=== PATIENT | female | born 1980 | race Caucasian/White ===

== ENCOUNTER 2020-06-11 09:29 | Emergency (ER) | payer OTHER ==
[2020-06-11] MEDS ORDERED: Sodium Chloride 0.9% 1000 ML 1,000 ML IV STA (10:03)
[2020-06-11] MEDS ORDERED: Sodium Chloride 0.9% 1000 ML 1,000 ML ONE (10:15)
[2020-06-11 10:21] LABS: Absolute Neutrophil Ct (ANC) 10.04 (1.4-6.9); BASOPHIL % 0.1 % (0.0-0.4); Basophil (Absolute #) 0.02 (0-0.4); Eosinophil % 1.9 % (0.00-5.0); Eosinophil (Absolute #) 0.27 (0-0.5); Hematocrit 48.1 % (35-47); Hemoglobin 16.3 gm/dl (12.0-16.0); Lymphocyte (Absolute #) 3.42 (1.0-4.6); Lymphocytes % 23.6 % (24.0-44.0); Mean Cell Volume 94.1 fl (78-100); Mean Corpuscular Hemoglobin 31.9 pg (26-32); Mean Corpuscular Hgb Concent. 33.9 g/dl (32-36); Mean Platelet Volume 11.8 fl (7.5-11.0); Monocyte (Absolute #) 0.77 (0.0-1.3); Monocytes % 5.3 % (0.0-12.0); Neutrophil % 69.1 % (36.0-66.0); Platelet Count 274 K/mm3 (150-450); Red Blood Count 5.11 M/mm3 (4.1-5.4); Red Cell Distribution Width 12.7 % (11.5-14.0); White Blood Count 14.5 K/mm3 (4.0-10.5)
--- NOTE | 2020-06-11 10:24 | ERPHSYRPT ---
- History of Present Illness Time Seen by Provider: 06/11/20 09:50 Source: patient Exam Limitations: no limitations Patient Subjective Stated Complaint: Dizziness Triage Nursing Assessment: Patient ambulated back to ED and transferred self to bed. Patient A+O X3. Patient's skin pink, warm and dry. Patient complains of dizziness and being nauseated for the past two days. Patient states she was around someone on and the person just tested positive for Covid 2 days ago. Patient complains of headache 5/10, body aches, dizziness, Nausea, and diarrhea. Physician History: Patient is a 40-year-old female presents to our ED for evaluation of generalized body, dizziness nausea loose stools. Patient concern for possible Covid. Patient was exposed to her [id number] who was diagnosed Covid +2 days ago. P atient symptoms are mild to moderate intensity. No specific worsening or improving factors. No associated rash. No vomiting. No diarrhea. No trauma. No fever. Chest pain or shortness of breath, patient otherwise healthy. She voices no other complaints at this time. Timing/Duration: day(s) Severity: moderate Modifying Factors: Improves With: nothing Associated Symptoms: nausea, No vomiting, No abdominal pain, No shortness of breath, No heartburn, No diaphoresis, No cough, No chills, No chest pain, No fever, No headaches, No loss of appetite, No malaise, No rash, No syncope, No seizure, No weakness Allergies/Adverse Reactions: ergocalciferol (vitamin D2) [From Vitamin D2] Allergy (Verified 06/11/20 09:46) metronidazole [From Flagyl] Allergy (Verified 06/11/20 09:46) Hx Influenza Vaccination/Date Given: No Hx Pneumococcal Vaccination/Date Given: No Immunizations Up to Date: Yes Travel Risk - International Travel Have you traveled outside of the country in past 3 weeks: No - Coronavirus Screening Are you exhibiting any of the following symptoms?: Yes Symptoms: Fever Close contact with a COVID-19 positive Pt in past 14-21 Days: Yes - Review of Systems Constitutional: No Symptoms, No Fever, No Chills Eyes: No Symptoms Ears, Nose, & Throat: No Symptoms Respiratory: No Symptoms, No Cough, No Dyspnea Cardiac: No Symptoms, No Chest Pain, No Edema, No Syncope Abdominal/Gastrointestinal: No Symptoms, No Abdominal Pain, No Nausea, No Vomiting, No Diarrhea Genitourinary Symptoms: No Symptoms, No Dysuria Musculoskeletal: No Symptoms, No Back Pain, No Neck Pain Skin: No Symptoms, No Rash Neurological: No Symptoms, No Dizziness, No Focal Weakness, No Sensory Changes Psychological: No Symptoms Endocrine: No Symptoms Hematologic/Lymphatic: No Symptoms Immunological/Allergic: No Symptoms All Other Systems: Reviewed and Negative - Past Medical History Pertinent Past Medical History: Yes Neurological History: No Pertinent History ENT History: No Pertinent History Cardiac History: No Pertinent History Respiratory History: No Pertinent History Endocrine Medical History: No Pertinent History Musculoskeletal History: Fibromyalgia GI Medical History: Colitis, Pancreatitis History: No Pertinent History Psycho-Social History: No Pertinent History Female Reproductive Disorders: No Pertinent History - Past Surgical History Past Surgical History: Yes Neuro Surgical History: No Pertinent History Cardiac: No Pertinent History Respiratory: No Pertinent History Gastrointestinal: Appendectomy, Cholecystectomy Musculoskeletal: No Pertinent History Female Surgical History: Hysterectomy, Other Other Surgical History: bladder sling - Social History Smoking Status: Current every day smoker How long have you smoked: years Exposure to second hand smoke: Yes Drug Use: none Patient Lives Alone: No - Female History Hx Last Menstrual Period: hysterecomty Hx Now: No - Nursing Vital Signs Nursing Vital Signs: Initial Vital Signs Temperature 98.3 F 06/11/20 09:48 Pulse Rate 78 06/11/20 09:48 Respiratory Rate 18 06/11/20 09:48 Blood Pressure 150/76 06/11/20 09:48 O2 Sat by Pulse Oximetry 98 06/11/20 09:48 Pain Scale Pain Intensity 5 - Physical Exam General Appearance: no apparent distress, alert Eye Exam: PERRL/EOMI, eyes nml inspection Ears, Nose, Throat Exam: normal ENT inspection, TMs normal, pharynx normal, moist mucous membranes Neck Exam: normal inspection, non-tender, supple, full range of motion Respiratory Exam: normal breath sounds, lungs clear, No respiratory distress Cardiovascular Exam: regular rate/rhythm, normal heart sounds, normal peripheral pulses Gastrointestinal/Abdomen Exam: soft, normal bowel sounds, No tenderness, No mass Back Exam: normal inspection, normal range of motion, No CVA tenderness, No vertebral tenderness Extremity Exam: normal inspection, normal range of motion, pelvis stable Neurologic Exam: alert, oriented x 3, cooperative, normal mood/affect, nml cerebellar function, nml station & gait, sensation nml, No motor deficits Skin Exam: normal color, warm, dry, No rash Lymphatic Exam: No adenopathy SpO2 Interpretation: normal SpO2: 96 O2 Delivery: Room Air - Course Nursing assessment & vital signs reviewed: Yes Ordered Tests: Active Orders 24 hr Category Date Time Status Mobile Equipment Operator STAT Care 06/11/20 10:05 Active EKG-ER Only STAT Care 06/11/20 10:03 Active IV Insertion STAT Care 06/11/20 10:03 Active Pulse Oximetry (ED) STAT Care 06/11/20 10:03 Active CBC W DIFF Stat Lab 06/11/20 10:03 Completed CMP Stat Lab 06/11/20 10:03 Completed HCG,QUALITATIVE URINE Stat Lab 06/11/20 10:07 Completed INFLUENZA A+B FUENTES Stat Lab 06/11/20 10:30 Completed MAGNESIUM Stat Lab 06/11/20 10:03 Completed UA W/RFX UR CULTURE Stat Lab 06/11/20 10:07 Completed Medication Summary Discontinued Medications Generic Name Dose Route Start Last Admin Trade Name Emanuel PRN Reason Stop Dose Admin Sodium Chloride 1,000 mls @ 999 mls/hr 06/11/20 10:03 06/11/20 11:18 Sodium Chloride 0.9% 1000 Ml IV 06/11/20 11:03 Infused .Q1H1M STA Infusion Sodium Chloride Confirm 06/11/20 10:15 Sodium Chloride 0.9% 1000 Ml Administered 06/11/20 10:16 Dose 1,000 mls @ ud .ROUTE .STK-MED ONE Lab/Rad Data: Laboratory Result Diagrams 06/11/20 10:03 06/11/20 10:03 Laboratory Results 06/11/20 06/11/20 06/11/20 Range/Units 10:30 10:07 10:07 WBC (4.0-10.5) K/mm3 RBC (4.1-5.4) M/mm3 Hgb (12.0-16.0) gm/dl Hct (35-47) % MCV (78-100) fl MCH (26-32) pg MCHC (32-36) g/dl RDW (11.5-14.0) % Plt Count (150-450) K/mm3 MPV (7.5-11.0) fl Gran % (36.0-66.0) % Eos # (Auto) (0-0.5) Absolute Lymphs (auto) (1.0-4.6) Absolute Monos (auto) (0.0-1.3) Lymphocytes % (24.0-44.0) % Monocytes % (0.0-12.0) % Eosinophils % (0.00-5.0) % Basophils % (0.0-0.4) % Absolute Granulocytes (1.4-6.9) Basophils # (0-0.4) Sodium (137-145) mmol/L Potassium (3.5-5.1) mmol/L Chloride (98-107) mmol/L Carbon Dioxide (22-30) mmol/L Anion Gap (5-15) MEQ/L BUN (7-17) mg/dL Creatinine (0.52-1.04) mg/dL Estimated GFR ML/MIN Glucose (74-106) mg/dL Calcium (8.4-10.2) mg/dL Magnesium (1.6-2.3) mg/dL Total Bilirubin (0.2-1.3) mg/dL AST (14-36) U/L ALT (0-35) U/L Alkaline Phosphatase (38-126) U/L Serum Total Protein (6.3-8.2) g/dL Albumin (3.5-5.0) g/dL Urine Color YELLOW (YELLOW) Urine Appearance SLIGHTLY CLOUDY (CLEAR) Urine pH 5.0 (5-6) Ur Specific [place] 1.021 (1.005-1.025) Urine Protein NEGATIVE (Negative) Urine Ketones TRACE (NEGATIVE) Urine Blood NEGATIVE (0-5) Simon/ul Urine Nitrite NEGATIVE (NEGATIVE) Urine Bilirubin NEGATIVE (NEGATIVE) Urine Urobilinogen NEGATIVE (0-1) mg/dL Ur Leukocyte Esterase NEGATIVE (NEGATIVE) Urine WBC (Auto) 3-5 (0-5) /HPF Urine RBC (Auto) 3-5 (0-2) /HPF U Epithel Cells (Auto) RARE (FEW) /HPF Urine Bacteria (Auto) NONE (NEGATIVE) /HPF Urine Mucus (Auto) SLIGHT (NEGATIVE) /HPF Urine Culture Reflexed NO (NO) Urine Glucose NEGATIVE (NEGATIVE) mg/dL Urine HCG, Qual NEGATIVE (Negative) Influenza Type A Ag NEGATIVE (NEGATIVE) Influenza Type B Ag NEGATIVE (NEGATIVE) 06/11/20 06/11/20 Range/Units 10:03 10:03 WBC 14.5 H (4.0-10.5) K/mm3 RBC 5.11 (4.1-5.4) M/mm3 Hgb 16.3 H (12.0-16.0) gm/dl Hct 48.1 H (35-47) % MCV 94.1 (78-100) fl MCH 31.9 (26-32) pg MCHC 33.9 (32-36) g/dl RDW 12.7 (11.5-14.0) % Plt Count 274 (150-450) K/mm3 MPV 11.8 H (7.5-11.0) fl Gran % 69.1 H (36.0-66.0) % Eos # (Auto) 0.27 (0-0.5) Absolute Lymphs (auto) 3.42 (1.0-4.6) Absolute Monos (auto) 0.77 (0.0-1.3) Lymphocytes % 23.6 L (24.0-44.0) % Monocytes % 5.3 (0.0-12.0) % Eosinophils % 1.9 (0.00-5.0) % Basophils % 0.1 (0.0-0.4) % Absolute Granulocytes 10.04 H (1.4-6.9) Basophils # 0.02 (0-0.4) Sodium 139 (137-145) mmol/L Potassium 4.0 (3.5-5.1) mmol/L Chloride 109 H (98-107) mmol/L Carbon Dioxide 22 (22-30) mmol/L Anion Gap 12.1 (5-15) MEQ/L BUN 11 (7-17) mg/dL Creatinine 0.68 (0.52-1.04) mg/dL Estimated GFR > 60.0 ML/MIN Glucose 95 (74-106) mg/dL Calcium 9.6 (8.4-10.2) mg/dL Magnesium 2.3 (1.6-2.3) mg/dL Total Bilirubin 0.40 (0.2-1.3) mg/dL AST 20 (14-36) U/L ALT 12 (0-35) U/L Alkaline Phosphatase 51 (38-126) U/L Serum Total Protein 8.9 H (6.3-8.2) g/dL Albumin 4.6 (3.5-5.0) g/dL Urine Color (YELLOW) Urine Appearance (CLEAR) Urine pH (5-6) Ur Specific [place] (1.005-1.025) Urine Protein (Negative) Urine Ketones (NEGATIVE) Urine Blood (0-5) Simon/ul Urine Nitrite (NEGATIVE) Urine Bilirubin (NEGATIVE) Urine Urobilinogen (0-1) mg/dL Ur Leukocyte Esterase (NEGATIVE) Urine WBC (Auto) (0-5) /HPF Urine RBC (Auto) (0-2) /HPF U Epithel Cells (Auto) (FEW) /HPF Urine Bacteria (Auto) (NEGATIVE) /HPF Urine Mucus (Auto) (NEGATIVE) /HPF Urine Culture Reflexed (NO) Urine Glucose (NEGATIVE) mg/dL Urine HCG, Qual (Negative) Influenza Type A Ag (NEGATIVE) Influenza Type B Ag (NEGATIVE) - Progress Progress: improved Progress Note: 06/11/20 10:27 Patient reassessed. She feels well. Normal sinus rhythm on hall monitor. Normal vitals. Swab pending. Influenza negative. IV fluids infused. Mild polycythemia. Patient is a smoker which may likely explain this finding. Will discharge home. Patient given instructions on self quarantine. Patient states she is ready for discharge. She voices no other complaints concerns at this time. 06/11/20 10:31 06/11/20 11:05 Counseled pt/family regarding: lab results, diagnosis, need for follow-up, smoking cessation - Departure Departure Disposition: Home Clinical Impression: Viral illness, Exposure to COVID-19 virus Condition: Stable Critical Care Time: No Referrals: RHODA TIDWELL [Primary Care Provider] - Additional Instructions: Discharge/Care Plan GUNNAR CLARK was seen on 06/11/20 in the Emergency Room. The patient was counseled regarding Diagnosis,Lab results, Imaging studies, need for follow up and when to return to the Emergency Room. Prescriptions given: Discharge Note I have spoken with the patient and/or caregivers. I have explained the patient's condition, diagnosis and treatment plan based on the information available to me at this time. I have answered the patient's and/or caregiver's questions and addressed any concerns. The patient and/or caregivers have as good understanding of the patient's diagnosis, condition and treatment plan as can be expected at this point. The vital signs have been stable. The patient's condition is stable and appropriate for discharge from the emergency department. The patient will pursue further outpatient evaluation with the primary care physician or other designated or consulting physician as outlined in the discharge instructions. The patient and/or caregivers are agreeable to this plan of care and follow-up instructions have been explained in detail. The patient and/or caregivers have received these instruction. The patient/and or caregivers are aware that any significant change in condition or worsening of symptoms should prompt an immediate return to this or the closest emergency department or call 911.
[2020-06-11 10:32] LABS: ALBUMIN 4.6 g/dL (3.5-5.0); ALKALINE PHOSPHATASE 51 U/L (38-126); ANION GAP 12.1 MEQ/L (5-15); BLOOD UREA NITROGEN 11 mg/dL (7-17); CHLORIDE 109 mmol/L (98-107); Calcium 9.6 mg/dL (8.4-10.2); Carbon Dioxide 22 mmol/L (22-30); Creatinine 1 0.68 mg/dL (0.52-1.04); EST GLOMERULAR FILTRATION RATE > 60.0 ML/MIN; Glucose 95 mg/dL (74-106); MAGNESIUM 2.3 mg/dL (1.6-2.3); SGOT/AST 20 U/L (14-36); SGPT/ALT 12 U/L (0-35); SODIUM 139 mmol/L (137-145); Total Protein 8.9 g/dL (6.3-8.2)
[2020-06-11 10:40] LABS: Appearance SLIGHTLY CLOUDY (CLEAR); Bilirubin NEGATIVE (NEGATIVE); Blood NEGATIVE Ery/ul (0-5); Epithelial Cells RARE /HPF (FEW); Glucose NEGATIVE (NEGATIVE); Ketones TRACE (NEGATIVE); Leukocyte Esterase NEGATIVE (NEGATIVE); Mucus SLIGHT /HPF (NEGATIVE); Nitrite NEGATIVE (NEGATIVE); Protein,Urine Dip NEGATIVE (Negative); Specific Gravity 1.021 (1.005-1.025); Urobilinogen NEGATIVE mg/dL (0-1)
[2020-06-11 11:08] LABS: INFLUENZA A NEGATIVE (NEGATIVE); INFLUENZA B NEGATIVE (NEGATIVE)
[2020-06-11 11:37] VITALS: BP 118/78; PULSE 56; O2SAT 97
== END 2020-06-11 11:39 | disposition home or self-care (01) ==
LOC: ED 09:29
DX: B34.9 Viral infection, unspecified (principal); Z20.818 Contact with and (suspected) exposure to other bacterial communicable diseases
CPT/HCPCS: 36000; 36415; 80053; 81001; 83735; 84703; 85025; 87400; 93041; 94760; 96360; 96361; 99284; U0003

== ENCOUNTER 2022-09-29 21:38 | Emergency (ER) | payer OTHER ==
[2022-09-29 21:46] VITALS: BP 134/79; PULSE 78; O2SAT 100
--- NOTE | 2022-09-29 22:13 | ERPHSYRPT ---
- History of Present Illness Time Seen by Provider: 09/29/22 22:10 Source: patient Exam Limitations: no limitations Patient Subjective Stated Complaint: Rt elbow/upper arm and shoulder pain Triage Nursing Assessment: pt ambulated into ER without diff. Pt c/o rt elbow, rt upper arm and rt shoulder pain. Pt states, "the pain began in my rt elbow in July and has just gotten worse, and has moved up to my upper arm and shoulder". Pt describes the pain now as a numbess and tingling feeling. Pt denies any injury to the arm. Pt can move the arm up and down but has pain when moving the arm out to the side. Physician History: Patient is a 42-year-old female presents emergency department for evaluation of chronic right upper extremity pain. Patient has been experiencing dull ache throughout her right upper extremity over the past 2 months. Patient states that she has a dependent child/special needs that weighs 59 pounds. Patient states she is right-hand dominant and she carries and transfers her child utili ng symptomatic arm. Patient feels this is exacerbating her symptoms. Patient describes an ache sensation throughout her right volar forearm biceps deltoid and trapezius musculature. Palpation to these areas reproduce her numbness. Active motion reproduces her symptoms. Pain improves/resolves with rest. No blunt trauma. No fever. Patient occasionally feels a numbness sensation to her arm. No active numbness sensation at this time. Patient's involved extremity is neurovascular tact distally. Patient otherwise feels well. She no other associated symptoms. Patient voices no other complaints or concerns at this time. Portions of this note were created with voice recognition technology. There may be grammatical, spelling, punctuation or sound alike errors Timing/Duration: other (2 months) Severity: moderate (3 months) Modifying Factors: Improves With: movement Associated Symptoms: denies symptoms Allergies/Adverse Reactions: ergocalciferol (vitamin D2) [From Vitamin D2] Allergy (Verified 09/29/22 21:52) metronidazole [From Flagyl] Allergy (Verified 09/29/22 21:52) Home Medications: Estradiol [Estrace] 0.5 mg PO DAILY 09/29/22 [History] Hx Tetanus, Diphtheria Vaccination/Date Given: No Hx Influenza Vaccination/Date Given: No Hx Pneumococcal Vaccination/Date Given: No Travel Risk - International Travel Have you traveled outside of the country in past 3 weeks: No - Coronavirus Screening Are you exhibiting any of the following symptoms?: No Close contact with a COVID-19 positive Pt in past 14-21 Days: No - Vaccine Status Have you recieved a Covid-19 vaccination: No - Review of Systems Constitutional: No Symptoms, No Fever, No Chills Eyes: No Symptoms Ears, Nose, & Throat: No Symptoms Respiratory: No Symptoms, No Cough, No Dyspnea Cardiac: No Symptoms, No Chest Pain, No Edema, No Syncope Abdominal/Gastrointestinal: No Symptoms, No Abdominal Pain, No Nausea, No Vomiting, No Diarrhea Genitourinary Symptoms: No Symptoms, No Dysuria Musculoskeletal: No Symptoms, No Back Pain, No Neck Pain Skin: No Symptoms, No Rash Neurological: No Symptoms, No Dizziness, No Focal Weakness, No Sensory Changes Psychological: No Symptoms Endocrine: No Symptoms Hematologic/Lymphatic: No Symptoms Immunological/Allergic: No Symptoms All Other Systems: Reviewed and Negative - Past Medical History Pertinent Past Medical History: Yes Neurological History: Migraines ENT History: No Pertinent History Cardiac History: No Pertinent History Respiratory History: No Pertinent History Endocrine Medical History: No Pertinent History Musculoskeletal History: No Pertinent History GI Medical History: Colitis, Pancreatitis, Other History: No Pertinent History Psycho-Social History: Depression Female Reproductive Disorders: No Pertinent History Other Medical History: PMHX: PANCREATITIS DX'D LAST YEAR. NOT VACCINATED AGAINST COVID. gastroporesis - Past Surgical History Past Surgical History: Yes Neuro Surgical History: No Pertinent History Cardiac: No Pertinent History Respiratory: No Pertinent History Gastrointestinal: Appendectomy, Cholecystectomy Musculoskeletal: No Pertinent History Female Surgical History: Hysterectomy, Other Other Surgical History: bladder sling. ovary removed - Social History Smoking Status: Former smoker How long have you smoked: years Exposure to second hand smoke: No Drug Use: none Patient Lives Alone: No - Female History Hx Now: No - Nursing Vital Signs Nursing Vital Signs: Initial Vital Signs Temperature 97.5 F 09/29/22 21:44 Pulse Rate 78 09/29/22 21:44 Respiratory Rate 16 09/29/22 21:44 Blood Pressure 134/79 09/29/22 21:44 O2 Sat by Pulse Oximetry 100 09/29/22 21:44 Pain Scale Pain Intensity 9 - Physical Exam General Appearance: no apparent distress, alert Eye Exam: PERRL/EOMI, eyes nml inspection Ears, Nose, Throat Exam: normal ENT inspection, TMs normal, pharynx normal, moist mucous membranes Neck Exam: normal inspection, non-tender, supple, full range of motion Respiratory Exam: normal breath sounds, lungs clear, airway intact, No res piratory distress Cardiovascular Exam: regular rate/rhythm, normal heart sounds, normal peripheral pulses Gastrointestinal/Abdomen Exam: soft, normal bowel sounds, No tenderness, No mass Back Exam: normal inspection, normal range of motion, No CVA tenderness, No vertebral tenderness Extremity Exam: normal inspection, normal range of motion, pelvis stable, other (Tenderness to palpation at the volar aspect right forearm biceps deltoid and right upper trapezius muscles. Active resisted motion reproduce symptoms.) Neurologic Exam: alert, oriented x 3, cooperative, normal mood/affect, nml cerebellar function, nml station & gait, sensation nml, No motor deficits Skin Exam: normal color, warm, dry, No rash Lymphatic Exam: No adenopathy SpO2 Interpretation: normal SpO2: 100 O2 Delivery: Room Air - Course Nursing assessment & vital signs reviewed: Yes - Progress Progress: improved Progress Note: 09/29/22 22:15 Patient is a 42-year-old female presents to our emergency department for evaluation of right upper extremity pain. History and physical exam highly suggestive of repetitive motion injury. Patient has a dependent special needs child that she carries and supports utilizing her pneumatic extremity. Palpation and physical active motion reproduce symptoms. Patient offered a sling however she states she has a sling at home. We advised patient to follow- up with her computer graphic artist to assess the need for home health to assist her with care of her child. Complexity of problem addressed is straightforward. Complexity of data reviewed and analyzed was none. Diagnosis is based on history and physical examination. Review of complications and or risk of morbidity/mortality of patient management is minimal. Patient requires rest and application of a sling. Patient will seek to obtain home health to assist her with care of her special needs child We will discharge patient home. Patient will follow-up with her primary care doctor to arrange for home health. Patient voices no other complaints or concerns at this time. No indication for further work-up. Portions of this note were created with voice recognition technology. There may be grammatical, spelling, punctuation or sound alike errors Counseled pt/family regarding: diagnosis, need for follow-up - Departure Departure Disposition: Home Clinical Impression: Repetitive motion disorder, Muscle strain Condition: Stable Critical Care Time: No Referrals: RHODA TIDWELL [Primary Care Provider] - Follow up/PCP as directed Instructions: Overuse Injuries (DC) Additional Instructions: Discharge/Care Plan GUNNAR CLARK was seen on 09/29/22 in the Emergency Room. The patient was counseled regarding Diagnosis,Lab results, Imaging studies, need for follow up and when to return to the Emergency Room. Prescriptions given: Discharge Note I have spoken with the patient and/or caregivers. I have explained the patient's condition, diagnosis and treatment plan based on the information available to me at this time. I have answered the patient's and/or caregiver's questions and addressed any concerns. The patient and/or caregivers have as good understanding of the patient's diagnosis, condition and treatment plan as can be expected at this point. The vital signs have been stable. The patient's condition is stable and appropriate for discharge from the emergency department. The patient will pursue further outpatient evaluation with the primary care physician or other designated or consulting physician as outlined in the discharge instructions. The patient and/or caregivers are agreeable to this plan of care and follow-up instructions have been explained in detail. The patient and/or caregivers have received these instruction. The patient/and or caregivers are aware that any significant change in condition or worsening of symptoms should prompt an immediate return to this or the closest emergency department or call 911.
== END 2022-09-29 22:20 | disposition home or self-care (01) ==
LOC: ED 21:38
DX: S46.911A Strain of unspecified muscle, fascia and tendon at shoulder and upper arm level, right arm, initial encounter (principal); X50.3XXA Overexertion from repetitive movements, initial encounter; X50.0XXA Overexertion from strenuous movement or load, initial encounter; Y93.F2 Activity, caregiving, lifting; M79.601 Pain in right arm; Z28.310 Unvaccinated for COVID-19
CPT/HCPCS: 99281

== ENCOUNTER 2022-12-03 22:24 | Emergency (ER) | payer OTHER ==
[2022-12-03 22:41] VITALS: O2SAT 98
[2022-12-03] MEDS ORDERED: TORAdol 30 mg Injection IM ONE (23:02)
[2022-12-03] MEDS ORDERED: Norflex 60 MG/2 ML IM ONE (23:02)
[2022-12-03] MEDS ORDERED: TORAdol 30 mg Injection ONE (23:05)
[2022-12-03] MEDS ORDERED: Norflex 60 MG/2 ML ONE (23:06)
--- NOTE | 2022-12-03 23:26 | ERPHSYRPT ---
- History of Present Illness Time Seen by Provider: 12/03/22 22:30 Source: patient Exam Limitations: no limitations Patient Subjective Stated Complaint: pt states "around 6 this morning my left calf was hurting like cramping and pain and I was unable to put weight on it. no change at all today despite walking, stretching, and a warm bath" Triage Nursing Assessment: pt ambulated into room 9 independently with slow steady gait and slight limp, walking on toes of left foot. pt is alert and oriented times three, able to move all extremities, resp even and unlabored, and able to speak in complete sentences. Physician History: 42 years old female presented to the ER with chief complaint of left calf pain since morning, sudden onset, dull aching to sharp ramping, more with ambulation and some what better with resting without swelling redness of calf. Denies any fall or trauma. No fever or chills reported. No history of DVT or PEs. Eyes any long travel. Timing/Duration: today, sudden Severity: moderate Modifying Factors: Worsens With: movement Associated Symptoms: denies symptoms Allergies/Adverse Reactions: ergocalciferol (vitamin D2) [From Vitamin D2] Allergy (Verified 09/29/22 21:52) metronidazole [From Flagyl] Allergy (Verified 09/29/22 21:52) Home Medications: Estradiol [Estrace] 0.5 mg PO DAILY 09/29/22 [History] Venlafaxine HCl [Venlafaxine HCl ER] 75 mg PO DAILY 09/29/22 [History] Hx Tetanus, Diphtheria Vaccination/Date Given: No Hx Influenza Vaccination/Date Given: No Hx Pneumococcal Vaccination/Date Given: No Immunizations Up to Date: No Travel Risk - International Travel Have you traveled outside of the country in past 3 weeks: No - Coronavirus Screening Are you exhibiting any of the following symptoms?: No Close contact with a COVID-19 positive Pt in past 14-21 Days: No - Vaccine Status Have you recieved a Covid-19 vaccination: No - Review of Systems Constitutional: No Symptoms Ears, Nose, & Throat: No Symptoms Respiratory: No Symptoms Cardiac: No Symptoms Abdominal/Gastrointestinal: No Symptoms Genitourinary Symptoms: No Symptoms Musculoskeletal: Other (Left calf pain) Skin: No Symptoms Neurological: No Symptoms Endocrine: No Symptoms Hematologic/Lymphatic: No Symptoms - Past Medical History Pertinent Past Medical History: Yes Neurological History: Migraines ENT History: No Pertinent History Cardiac History: No Pertinent History Respiratory History: No Pertinent History Endocrine Medical History: No Pertinent History Musculoskeletal History: No Pertinent History, Fibromyalgia GI Medical History: Colitis, Pancreatitis, Other History: No Pertinent History Psycho-Social History: Depression Female Reproductive Disorders: No Pertinent History Other Medical History: PMHX: PANCREATITIS DX'D LAST YEAR. NOT VACCINATED AGAINST COVID. gastroporesis - Past Surgical History Past Surgical History: Yes Neuro Surgical History: No Pertinent History Cardiac: No Pertinent History Respiratory: No Pertinent History Gastrointestinal: Appendectomy, Cholecystectomy Genitourinary: No Pertinent History Musculoskeletal: No Pertinent History Female Surgical History: Hysterectomy, Other Other Surgical History: bladder sling. ovary removed - Social History Smoking Status: Former smoker How long have you smoked: years Exposure to second hand smoke: No Drug Use: none Patient Lives Alone: No - Female History Hx Last Menstrual Period: 2018 Hx Now: No - Nursing Vital Signs Nursing Vital Signs: Initial Vital Signs Blood Pressure 122/79 12/03/22 22:31 O2 Sat by Pulse Oximetry 98 12/03/22 22:31 Pain Scale Pain Intensity 4 - Physical Exam General Appearance: no apparent distress, alert Eye Exam: PERRL/EOMI Ears, Nose, Throat Exam: normal ENT inspection, pharynx normal Neck Exam: normal inspection, supple, full range of motion Respiratory Exam: normal breath sounds, lungs clear Cardiovascular Exam: regular rate/rhythm, normal heart sounds Extremity Exam: normal inspection, normal range of motion, pelvis stable, tenderness (Tenderness left calf. No swelling or redness. No e rythema/increased temperature. No bony tenderness.) Neurologic Exam: alert, oriented x 3, cooperative Skin Exam: normal color SpO2 Interpretation: normal SpO2: 98 O2 Delivery: Room Air Ordered Tests: Active Orders 24 hr Category Date Time Status VENOUS UNILAT/LIMITED EXTREMIT [US] Stat Exams 12/04/22 23:40 Taken CMP Stat Lab 12/03/22 23:16 Completed MAG [MAGNESIUM] Stat Lab 12/03/22 23:16 Completed Medication Summary Discontinued Medications Generic Name Dose Route Start Last Admin Trade Name Freq PRN Reason Stop Dose Admin Ketorolac Tromethamine 30 mg 12/03/22 23:02 12/03/22 23:07 Ketorolac Tromethamine 30 Mg/Ml Inj IM 12/03/22 23:03 30 mg STAT ONE Administration Ketorolac Tromethamine Confirm 12/03/22 23:05 Ketorolac Tromethamine 30 Mg/Ml Inj Administered 12/03/22 23:06 Dose 30 mg .ROUTE .STK-MED ONE Orphenadrine Citrate 60 mg 12/03/22 23:02 12/03/22 23:07 Orphenadrine Citrate 60 Mg/2 Ml Vial IM 12/03/22 23:03 60 mg STAT ONE Administration Orphenadrine Citrate Confirm 12/03/22 23:06 Orphenadrine Citrate 60 Mg/2 Ml Vial Administered 12/03/22 23:07 Dose 60 mg .ROUTE .STK-MED ONE Lab/Rad Data: Laboratory Result Diagrams 12/03/22 23:16 Laboratory Results 12/03/22 Range/Units 23:16 Sodium 139 (137-145) mmol/L Potassium 3.7 (3.5-5.1) mmol/L Chloride 106 (98-107) mmol/L Carbon Dioxide 24 (22-30) mmol/L Anion Gap 13.6 (5-15) MEQ/L BUN 15 (7-17) mg/dL Creatinine 0.56 (0.52-1.04) mg/dL Estimated GFR > 60.0 ML/MIN Glucose 105 (74-106) mg/dL Calcium 9.0 (8.4-10.2) mg/dL Magnesium 1.8 (1.6-2.3) mg/dL Total Bilirubin 0.30 (0.2-1.3) mg/dL AST 49 H (14-36) U/L ALT 73 H (0-35) U/L Alkaline Phosphatase 44 (38-126) U/L Serum Total Protein 7.3 (6.3-8.2) g/dL Albumin 3.8 (3.5-5.0) g/dL - Progress Progress: improved, pain not gone completely, re-examined Progress Note: 12/04/22 00:26 42 years old is evaluated for left cough pain without any swelling redness, or trauma. Patient is given symptomatic treatment with Toradol, Norflex, reevaluation feeling better but pain is not resolved. Patient has unremarkable electrolytes. No bony tenderness at all. No signs of toxicity. Patient does take estradiol making her more vulnerable for DVT and have obtained ultrasound which is negative per preliminary report, official report is pending. It seems more of a muscular pain, recommended Tylenol ibuprofen and outpatient follow-up. Discussed signs symptoms of worsening needing return to ER which she seems to stable for discharge. Counseled pt/family regarding: lab results, diagnosis, need for follow-up, rad results - Departure Departure Disposition: Home Clinical Impression: Pain of left calf Condition: Stable Critical Care Time: No Referrals: RHODA TIDWELL [Primary Care Provider] - Follow up/PCP as directed (1-2 days for reevaluation) Instructions: Muscle Spasms (DC) Additional Instructions: Take Tylenol/needed. Follow-up care for reeval ration. Return worsening pain or if having swelling redness/fever chills/difficulty ambulation etc. Prescriptions: Ibuprofen 600 mg PO Q6HPRN PRN 10 Days #20 tablet PRN Reason: Pain
[2022-12-03 23:32] LABS: ALBUMIN 3.8 g/dL (3.5-5.0); ALKALINE PHOSPHATASE 44 U/L (38-126); ANION GAP 13.6 MEQ/L (5-15); BLOOD UREA NITROGEN 15 mg/dL (7-17); CHLORIDE 106 mmol/L (98-107); Carbon Dioxide 24 mmol/L (22-30); Creatinine 1 0.56 mg/dL (0.52-1.04); EST GLOMERULAR FILTRATION RATE > 60.0 ML/MIN; Glucose 105 mg/dL (74-106); MAGNESIUM 1.8 mg/dL (1.6-2.3); Potassium 3.7 mmol/L (3.5-5.1); SGOT/AST 49 U/L (14-36); SGPT/ALT 73 U/L (0-35); SODIUM 139 mmol/L (137-145); Total Protein 7.3 g/dL (6.3-8.2)
[2022-12-04 00:41] VITALS: BP 126/76; PULSE 73
--- NOTE | 2022-12-04 08:36 | XRAY ---
Indication: Calf pain. Two-dimensional sonogram and color Doppler imaging of the major venous vessels of the left leg performed. Comparison: None No thrombus seen in the examined deep venous vessels of the left leg including greater saphenous vein. Veins demonstrate normal compressibility. Venous waveforms are normal with and without augmentation. Impression: Left leg negative for DVT. Comment: Preliminary report was given.
== END 2022-12-04 00:42 | disposition home or self-care (01) ==
LOC: ED 22:24
DX: M79.662 Pain in left lower leg (principal); Z20.828 Contact with and (suspected) exposure to other viral communicable diseases; Z79.899 Other long term (current) drug therapy
CPT/HCPCS: 36415; 80053; 83735; 93971; 96372; 99283; J1885; J2360

== ENCOUNTER 2024-09-18 17:47 | Emergency (ER) | payer SELFPAY ==
[2024-09-18 18:06] VITALS: TEMP 98.1
--- NOTE | 2024-09-18 18:54 | ERPHSYRPT ---
- History of Present Illness Time Seen by Provider: 09/18/24 18:45 Source: patient Exam Limitations: clinical condition Patient Subjective Stated Complaint: Left sided flank pain/abdominal pain Triage Nursing Assessment: Patient ambulated back to ED and transferred self to bed. Patient A+O X 3. Patient's skin pink, warm and dry. Patient complains of left sided flank/ abdominal pain 8/10 for the past 4 days with nausea. Patient denies vomiting or diarrhea. Abdomen soft and round with BS X 4. Patient states she does have a hx of pancreatitis. Timing/Duration: today Severity: mild Allergies/Adverse Reactions: ergocalciferol (vitamin D2) [From Vitamin D2] Allergy (Verified 09/18/24 17:55) metronidazole [From Flagyl] Allergy (Verified 09/18/24 17:55) Home Medications: No Reportable Medications [No Reported Medications] 09/18/24 [History] Hx Tetanus, Diphtheria Vaccination/Date Given: No Hx Influenza Vaccination/Date Given: No Hx Pneumococcal Vaccination/Date Given: No Immunizations Up to Date: Yes Travel Risk - International Travel Have you traveled outside of the country in past 3 weeks: No - Emerging Infectious Disease Are you exhibiting symptoms associated with any current EIDs: No - Review of Systems Constitutional: No Symptoms Eyes: No Symptoms Ears, Nose, & Throat: No Symptoms Respiratory: No Symptoms Cardiac: No Symptoms Abdominal/Gastrointestinal: Abdominal Pain Musculoskeletal: No Symptoms Skin: No Symptoms Neurological: No Symptoms Psychological: No Symptoms, Hallucinations Hematologic/Lymphatic: No Symptoms All Other Systems: Reviewed and Negative - Past Medical History Pertinent Past Medical History: Yes Neurological History: Migraines ENT History: No Pertinent History Cardiac History: No Pertinent History Respiratory History: No Pertinent History Endocrine Medical History: No Pertinent History Musculoskeletal History: No Pertinent History, Fibromyalgia GI Medical History: Colitis, Pancreatitis, Other History: No Pertinent History Psycho-Social History: Depression Female Reproductive Disorders: No Pertinent History Other Medical History: PMHX: PANCREATITIS DX'D LAST YEAR. NOT VACCINATED AGAINST COVID. gastroporesis - Past Surgical History Past Surgical History: Yes Neuro Surgical History: No Pertinent History Cardiac: No Pertinent History Respiratory: No Pertinent History Gastrointestinal: Appendectomy, Cholecystectomy Genitourinary: No Pertinent History Musculoskeletal: No Pertinent History Female Surgical History: Hysterectomy, Other Other Surgical History: bladder sling. ovary removed - Female History Hx Last Menstrual Period: hysterectomy Hx Now: No - Social History Smoking Status: Never smoker Exposure to second hand smoke: No Drug Use: none - Social Determinants of Health Will the patient participate in the screening: Yes Do you worry about a steady place to live?: No Do you have any problems with any of the following?: No known problems In the past 12 months,have you had to go without utilities?: No Transportation Issues: No Has anyone in your support network made you feel unsafe?: No Have you or anyone in your house had to go w/o enough food: No - Nursing Vital Signs Nursing Vital Signs: Initial Vital Signs O2 Sat by Pulse Oximetry 99 09/18/24 17:57 Pain Scale Pain Intensity 7 - Physical Exam General Appearance: no apparent distress Eye Exam: PERRL/EOMI Ears, Nose, Throat Exam: normal ENT inspection Neck Exam: normal inspection Respiratory Exam: normal breath sounds Cardiovascular Exam: regular rate/rhythm Gastrointestinal/Abdomen Exam: soft, normal bowel sounds, tenderness (mild diffuse tenderness noted ) SpO2: 97 Ordered Tests: Active Orders 24 hr Category Date Time Status ABDOMEN AND PELVIS W CONTRAST [CT] Stat Exams 09/18/24 18:50 Taken AMYLASE Stat Lab 09/18/24 18:30 Completed CBC W DIFF Stat Lab 09/18/24 18:30 Completed CMP Stat Lab 09/18/24 18:30 Completed HCG QUALITATIVE, SERUM Stat Lab 09/18/24 18:30 Completed LIPASE Stat Lab 09/18/24 18:30 Completed UA W/RFX UR CULTURE Stat Lab 09/18/24 21:13 Received Medication Summary Discontinued Medications Generic Name Dose Route Start Last Admin Trade Name Emanuel PRN Reason Stop Dose Admin Sodium Chloride 1,000 mls @ 999 mls/hr 09/18/24 18:51 09/18/24 20:32 Sodium Chloride 0.9% 1000 Ml IV 09/18/24 19:51 Infused .Q1H1M STA Infusion Sodium Chloride Confirm 09/18/24 18:55 Sodium Chloride 0.9% 1000 Ml Administered 09/18/24 18:56 Dose 1,000 mls @ ud .ROUTE .STK-MED ONE Ondansetron HCl 4 mg 09/18/24 18:51 09/18/24 18:57 Ondansetron Hcl 4 Mg/2 Ml Vial IV 09/18/24 18:52 4 mg STAT ONE Administration Ondansetron HCl Confirm 09/18/24 18:55 Ondansetron Hcl 4 Mg/2 Ml Vial Administered 09/18/24 18:56 Dose 4 mg .ROUTE .STK-MED ONE Lab/Rad Data: Laboratory Result Diagrams 09/18/24 18:30 09/18/24 18:30 Laboratory Results 09/18/24 09/18/24 09/18/24 Range/Units 18:30 18:30 18:30 WBC 11.3 H (3.98-10.04) x10^3/uL RBC 4.52 (3.93-5.22) x10^6/uL Hgb 13.5 (11.2-15.7) g/dL Hct 40.7 (34.1-44.9) % MCV 90.0 (79.4-94.8) fL MCH 29.9 (25.6-32.2) pg MCHC 33.2 (32.2-35.5) g/dL RDW 11.8 (11.7-14.4) % Plt Count 306 (182-369) x10^3/uL MPV 11.5 (9.4-12.3) fL Gran % 61.5 (34.0-71.1) % Immature Gran % (Auto) 0.4 (0.001-0.429) % Nucleat RBC Rel Count 0.0 (0.00-0.2) % Eos # (Auto) 0.23 (0.04-0.36) x10^3/uL Immature Gran # (Auto) 0.05 H (0.001-0.031) x10^3u/L Absolute Lymphs (auto) 3.47 (1.18-3.74) x10^3/uL Absolute Monos (auto) 0.55 (0.24-0.86) x10^3/uL Absolute Nucleated RBC 0.00 (0.00-0.012) x10^3u/L Lymphocytes % 30.7 (19.3-51.7) % Monocytes % 4.9 (4.7-12.5) % Eosinophils % 2.0 (0.7-5.8) % Basophils % 0.5 (0.1-1.2) % Absolute Granulocytes 6.93 H (1.56-6.13) x10^3/uL Basophils # 0.06 (0.01-0.08) x10^3/uL Sodium 141 (135-145) mmol/L Potassium 3.7 (3.5-5.1) mmol/L Chloride 106 (98-107) mmol/L Carbon Dioxide 21 L (22-30) mmol/L Anion Gap 17.5 H (5-15) MEQ/L BUN 17 (7-17) mg/dL Creatinine 0.68 (0.52-1.04) mg/dL Estimated GFR 110.1 ML/MIN Glucose 131 H (74-106) mg/dL Calcium 9.3 (8.4-10.2) mg/dL Total Bilirubin 0.40 (0.2-1.3) mg/dL AST 28 (14-36) U/L ALT 19 (0-35) U/L Alkaline Phosphatase 59 (38-126) U/L Serum Total Protein 8.2 (6.3-8.2) g/dL Albumin 4.7 (3.5-5.0) g/dL Amylase 74 (30-110) U/L Lipase 164 (23-300) U/L Serum HCG, Qual NEGATIVE (NEGATIVE) - Progress Progress Note: Patient was seen and evaluated for abdominal pain labs were obtained CT of the abdomen pelvis was obtained she was given IV fluids and antiemetics. 09/18/24 21:07 CT scan of the abdomen pelvis reveals no acute findings patient was updated with the results and informed of the need for follow-up she has no pain at this time. . She was informed of the need for follow-up with her primary care provider in the morning and return to the ER if she were to get worse 09/18/24 21:28 Medical Desision Making - Discussion of managment Agreed on:: need for follow-up Will see patient: In office - Departure Departure Disposition: Home Clinical Impression: Acute abdominal pain Condition: Stable Critical Care Time: No Referrals: RHODA TIDWELL [Primary Care Provider] - Follow up/PCP as directed Instructions: Abdominal pain in adults - ED discharge instructions
[2024-09-18] MEDS ORDERED: Sodium Chloride 0.9% 1000 ML 1,000 ML ONE (18:55)
[2024-09-18] MEDS ORDERED: Zofran 4 MG/2 ML VIAL ONE (18:55)
[2024-09-18 18:57] VITALS: RESP 18
[2024-09-18] MEDS: Sodium Chloride 0.9% 1000 ML 1,000 ML IV STA (18:57)
[2024-09-18] MEDS: Zofran 4 MG/2 ML VIAL IV ONE (18:57)
[2024-09-18 19:02] LABS: Absolute Neutrophil Ct (ANC) 6.93 x10^3/uL (1.56-6.13); BASOPHIL % 0.5 % (0.1-1.2); Basophil (Absolute #) 0.06 x10^3/uL (0.01-0.08); Eosinophil (Absolute #) 0.23 x10^3/uL (0.04-0.36); Hematocrit 40.7 % (34.1-44.9); Hemoglobin 13.5 g/dL (11.2-15.7); IMMATURE GRAN # 0.05 x10^3u/L (0.001-0.031); IMMATURE GRAN % 0.4 % (0.001-0.429); Lymphocyte (Absolute #) 3.47 x10^3/uL (1.18-3.74); Lymphocytes % 30.7 % (19.3-51.7); Mean Corpuscular Hemoglobin 29.9 pg (25.6-32.2); Mean Corpuscular Hgb Concent. 33.2 g/dL (32.2-35.5); Mean Platelet Volume 11.5 fL (9.4-12.3); Monocyte (Absolute #) 0.55 x10^3/uL (0.24-0.86); Monocytes % 4.9 % (4.7-12.5); Neutrophil % 61.5 % (34.0-71.1); Platelet Count 306 x10^3/uL (182-369); Red Blood Count 4.52 x10^6/uL (3.93-5.22); Red Cell Distribution Width 11.8 % (11.7-14.4); White Blood Count 11.3 x10^3/uL (3.98-10.04)
[2024-09-18 19:07] LABS: HCG SERUM TEST NEGATIVE (NEGATIVE)
[2024-09-18 19:08] LABS: ALBUMIN 4.7 g/dL (3.5-5.0); ANION GAP 17.5 MEQ/L (5-15); BILIRUBIN,TOTAL 0.4 mg/dL (0.2-1.3); Calcium 9.3 mg/dL (8.4-10.2); Creatinine 1 0.68 mg/dL (0.52-1.04); EST GLOMERULAR FILTRATION RATE 110.1 ML/MIN; Potassium 3.7 mmol/L (3.5-5.1); Total Protein 8.2 g/dL (6.3-8.2)
[2024-09-18 20:18] VITALS: PULSE 86
[2024-09-18 21:09] VITALS: O2SAT 97
[2024-09-18 21:14] VITALS: BP 161/92
[2024-09-18 21:27] LABS: Appearance Clear (Clear); Bacteria Rare /HPF (None Seen); Bilirubin Negative (Negative); Blood Trace (Negative); Epithelial Cells Rare /HPF (None Seen); Glucose, Urine Negative (Negative); Hyaline Casts NONE SEEN /LPF (0-2); Ketones Negative (Negative); Leukocyte Esterase Negative (Negative); Nitrite Negative (Negative); Protein,Urine Dip Negative (Negative); Specific Gravity 1.025 (1.005-1.030); Urobilinogen 0.2 mg/dL (0.2); WBC 0-2 /HPF (0-5)
--- NOTE | 2024-09-19 09:03 | XRAY ---
Indication: Abdomen pain. Multiple contiguous axial images obtained through the abdomen and pelvis using 80 cc Isovue 370 contrast contrast. Comparison: None Lung bases demonstrates mild bilateral subsegmental atelectasis/scarring. No infiltrate or effusion. Heart not enlarged. Noncontrasted stomach and bowel loops appear nonobstructed. Scattered colonic fecal debris greatest in ascending and transverse colon. Previous appendectomy, cholecystectomy, and hysterectomy. Both kidneys enhance and excrete with 9 mm left mid renal cyst. No free fluid/air. Remaining liver, pancreas, spleen, adrenal glands, kidneys, ureters, and bladder are unremarkable. Mild scattered aortoiliac calcifications. No AAA or pathologic retroperitoneal lymphadenopathy. Osseous structures intact with minimal dextroscoliosis centered at L2. Impression: 1. Mild diffuse fecal stasis, left renal cyst, arteriosclerotic disease, and dextroscoliosis. 2. Remaining CT abdomen/pelvis with contrast exam is negative.
== END 2024-09-18 21:34 | disposition home or self-care (01) ==
LOC: ED 17:47
DX: R10.9 Unspecified abdominal pain (principal)
CPT/HCPCS: 36415; 74177; 80053; 81001; 82150; 83690; 84703; 85025; 96361; 96374; 99284; 99285; J2405